=== PATIENT | female | born 1980 | race African-American/Black ===

== ENCOUNTER 2018-03-07 12:38 | Emergency (ER) | payer MEDICAID ==
[~2018-03-07] VITALS: Ht 167.6 cm; Wt 88.5 kg
[2018-03-07 12:41] VITALS: Ht 167.6 cm; Wt 88.5 kg
[2018-03-07 14:36] VITALS: BP 136/91
== END 2018-03-07 14:36 | disposition home or self-care (01) ==
LOC: ED 12:38
DX: S20.219A Contusion of unspecified front wall of thorax, initial encounter (principal); V89.2XXA Person injured in unspecified motor-vehicle accident, traffic, initial encounter; Y93.89 Activity, other specified; Y92.89 Other specified places as the place of occurrence of the external cause; Y99.8 Other external cause status
CPT/HCPCS: Q0092

== ENCOUNTER 2018-03-31 12:30 | Emergency (ER) | payer MEDICAID ==
[~2018-03-31] VITALS: Ht 170.2 cm; Wt 90.3 kg
[2018-03-31 12:33] VITALS: Ht 170.2 cm; Wt 90.3 kg
[2018-03-31 13:43] VITALS: BP 125/62
== END 2018-03-31 13:43 | disposition home or self-care (01) ==
LOC: ED 12:30
DX: S20.211A Contusion of right front wall of thorax, initial encounter (principal); V89.2XXA Person injured in unspecified motor-vehicle accident, traffic, initial encounter; Y93.89 Activity, other specified; Y92.89 Other specified places as the place of occurrence of the external cause; Y99.8 Other external cause status